=== PATIENT | female | born 1940 | race Caucasian/White ===

== ENCOUNTER 2018-02-12 06:03 | Emergency (ER) | payer MEDICARE ==
[~2018-02-12] VITALS: Ht 165.1 cm; Wt 58.1 kg
[~2018-02-12 06:03] MED LIST: ALPRAZOLAM0.5 MG PO; ASA81 MG PO; CALCIUM 500+D1 EACH PO; CLINDAMYCIN HC300 MG PO; CRANBERRY500 MG PO; DOCUSATE SODIU100 MG PO; FERROUS SULFAT325 MG PO; HCT25T PO; K-DUR10 ME1 PO; KCL10CCR PO; LOPRESSOR25 MG PO; LOVASTATIN40 MG PO; MAGNESIUM OXID400 MG PO; OMEPRAZOLE40 MG PO; ULTRAM 50MG50 MG PO; VIBRAMYCIN TAB100 MG PO; Z IMITREX PO; Z.0.HYDROCHLOROTHIA2 PO; Z.0.LIPITOR20 MG; Z.0.LOVASTATIN20 MG PO; Z.0.TOPROL XL50 MG PO; ZOFRAN ODT4 MG SL
[2018-02-12 06:52] LABS: BASOPHILS # (AUTO) 0.1 (0.0-0.1); BASOPHILS % 0.9 % (0.0-1.0); EOSINOPHILS # (AUTO) 0.2 (0.0-0.4); EOSINOPHILS % 3.5 % (0.0-6.0); HEMOGLOBIN 12.1 g/dL (12.0-16.0); LYMPHOCYTES # (AUTO) 2.2 (1.0-3.2); LYMPHOCYTES % 34.5 % (18.0-39.1); MEAN CORPUSCULAR HEMOGLOBIN 30.3 pg (28-32); MEAN CORPUSCULAR HGB CONC 33.6 g/dL (31-35); MEAN CORPUSCULAR VOLUME 90.2 fL (81-99); MONOCYTES # (AUTO) 0.6 (0.2-0.8); MONOCYTES % 8.7 % (4.4-11.3); NEUTROPHILS # (AUTO) 3.3 (2.1-6.9); NEUTROPHILS % 52.1 % (38.7-80.0); PLATELET COUNT 303 x10e3/uL (140-360); RED BLOOD COUNT 3.99 x10e6/uL (3.6-5.1); RED CELL DISTRIBUTION WIDTH 13.2 % (11.7-14.4)
[2018-02-12 06:56] LABS: INR 0.78; PROTHROMBIN TIME 11.6 seconds (11.9-14.5)
[2018-02-12 06:57] LABS: PARTIAL THROMBOPLASTIN TIME 34.6 seconds (23.8-35.5)
--- NOTE | 2018-02-12 07:02 | Diagnostic Imaging Report ---
EXAMINATION: CHEST 2 VIEWS INDICATION: Shortness of breath ^SOB ^[id number] ^[id number] COMPARISON: None FINDINGS: PA and lateral views TUBES and LINES: None. LUNGS: Lungs are well inflated. Lungs are clear. There is no evidence of pneumonia or pulmonary edema. PLEURA: No pleural effusion or pneumothorax. HEART AND MEDIASTINUM: The cardiomediastinal silhouette is unremarkable. BONES AND SOFT TISSUES: No acute osseous lesion. Sclerotic focus in the right humeral head, possibly bone infarct or enchondroma. Right axillary surgical clips. Right breast implant. UPPER ABDOMEN: No free air under the diaphragm. There are cholecystectomy clips. IMPRESSION: No acute thoracic abnormality. Sclerotic focus in the right humeral head, possibly bone infarct or enchondroma. Given presumed breast cancer, recommend correlation with prior imaging. Signed by: DR. Dorian Avery MD on 02/12/2018 6:59 AM
[2018-02-12 07:07] LABS: ALANINE AMINOTRANSFERASE 16 IU/L (0-55); ALBUMIN/GLOBULIN RATIO 1.2 (0.8-2.0); ALKALINE PHOSPHATASE 93 IU/L (40-150); ANION GAP 12.5 mmol/L (8-16); BLOOD UREA NITROGEN 16 mg/dL (7-26); BUN/CREATININE RATIO 20 (6-25); CALCIUM 9.6 mg/dL (8.4-10.2); CARBON DIOXIDE 26 mmol/L (22-29); CHLORIDE 106 mmol/L (98-107); CREATINE KINASE 58 IU/L (29-168); EST GLOMERULAR FILTRATION RATE > 60 ML/MIN (60-); GLUCOSE 115 mg/dL (74-118); MAGNESIUM 2.3 MG/DL (1.3-2.1); POTASSIUM 3.5 mmol/L (3.5-5.1); SODIUM 141 mmol/L (136-145)
[2018-02-12 07:17] LABS: CLARITY,URINE CLEAR (CLEAR); COLOR,URINE YELLOW (YELLOW)
[2018-02-12 07:18] LABS: BILIRUBIN,URINE NEGATIVE (NEGATIVE); KETONES,URINE NEGATIVE (NEGATIVE); LEUKOCYTE ESTERASE ,URINE NEGATIVE (NEGATIVE); NITRITE,URINE NEGATIVE (NEGATIVE); PROTEIN,URINE DIPSTICK NEGATIVE (NEGATIVE); URINE UROBILINOGEN 0.2 mg/dL (0.2 - 1)
[2018-02-12] MEDS ORDERED: ALBUTEROL/IPRATROPIUM 3 ML NEB NEB ONE (07:45)
[2018-02-12 10:01] VITALS: BP 160/88
== END 2018-02-12 10:05 | disposition home or self-care (01) ==
LOC: ER 06:03
DX: R06.00 Dyspnea, unspecified (principal); I10 Essential (primary) hypertension; Z85.3 Personal history of malignant neoplasm of breast; Z90.10 Acquired absence of unspecified breast and nipple; Z88.1 Allergy status to other antibiotic agents; Z88.8 Allergy status to other drugs, medicaments and biological substances
CPT/HCPCS: 36415; 71046; 80053; 81001; 82550; 82553; 83518; 83735; 83880; 84484; 85025; 85379; 85610; 85730; 87086; 93005; 94640; 99283

== ENCOUNTER 2018-02-14 18:29 | Emergency (ER) | payer MEDICARE ==
[~2018-02-14] VITALS: Ht 165.1 cm; Wt 70.8 kg
--- OUTSIDE RECORDS SUMMARY | 2018-02-14 18:32 | XMS REPORT ---
Author Author [facility] Address Unknown Phone Unavailable Care Team Providers Care Portable [employer] Operator Name Role Phone Michele AGUIRRE Unavailable Unavailable Problems This patient has no known problems. Allergies, Adverse Reactions, Alerts This patient has no known allergies or adverse reactions. Medications This patient has no known medications. Results Test Description Test Time Test Comments Text Results Atomic Results Result Comments CHEST 2 VIEWS 2018-02-12 06:56:00 [place] [id number] Patient Name: KEITH DAMICO MR #: [id number] : 1940 Age/Sex: 77/F Req #: [id number] Adm Physician: Ordered by: MIKIE AGUIRRE MD Report #: [id number] Location: ER Room/Bed: Procedure: [id number] DX/CHEST 2 VIEWS Exam Date: 02/12/18 Exam Time: 644 REPORT STATUS: Signed EXAMINATION: CHEST 2 VIEWS INDICATION: Shortness of breath SOB [id number] COMPARISON: None FINDINGS: PA and lateral views TUBES and LINES: None. LUNGS: Lungs are well inflated. Lungs are clear. There is no evidence of pneumonia or pulmonary edema. PLEURA: No pleural effusion or pneumothorax. HEART AND MEDIASTINUM: The cardiomediastinal silhouette is unremarkable. BONES AND SOFT TISSUES: No acute osseous lesion. Sclerotic focus in the right humeral head, possibly bone infarct or enchondroma. Right axillary surgical clips. Right breast implant. UPPER ABDOMEN: No free air under the diaphragm. There are cholecystectomy clips. IMPRESSION: No acute thoracic abnormality. Sclerotic focus in the right humeral head, possibly bone infarct or enchondroma. Given presumed breast cancer, recommend correlation with prior imaging. Signed by: DR. Dorian Teran MD on 02/12/2018 6:59 AM Dictated By: DORIAN TERAN MD 8 Transcribed By: SUSU on 02/12/18658 COPY TO: MIKIE AGUIRRE MD
--- NOTE | 2018-02-14 20:13 | Diagnostic Imaging Report ---
EXAMINATION: CHEST 2 VIEWS INDICATION: ^sob ^[id number] ^[id number] COMPARISON: 02/12/2018 FINDINGS: PA and lateral views TUBES and LINES: None. LUNGS: Lungs are well inflated. Lungs are clear. There is no evidence of pneumonia or pulmonary edema. PLEURA: No pleural effusion or pneumothorax. HEART AND MEDIASTINUM: The cardiomediastinal silhouette is unremarkable. BONES AND SOFT TISSUES: No acute osseous lesion. Right axillary fili dissection clips are again seen. Right breast implant. Unchanged sclerotic focus of the right humeral head. Degenerative changes of thoracic spine. UPPER ABDOMEN: No free air under the diaphragm. IMPRESSION: No acute thoracic abnormality. Signed by: Dr. Alexx Valle MD on 02/14/2018 8:10 PM
[2018-02-14 20:34] LABS: BASOPHILS # (AUTO) 0.1 (0.0-0.1); BASOPHILS % 0.8 % (0.0-1.0); EOSINOPHILS # (AUTO) 0.2 (0.0-0.4); EOSINOPHILS % 2.5 % (0.0-6.0); HEMATOCRIT 35.7 % (34.2-44.1); LYMPHOCYTES # (AUTO) 1.9 (1.0-3.2); LYMPHOCYTES % 29.5 % (18.0-39.1); MEAN CORPUSCULAR HEMOGLOBIN 29.6 pg (28-32); MEAN CORPUSCULAR HGB CONC 33.6 g/dL (31-35); MEAN CORPUSCULAR VOLUME 87.9 fL (81-99); MONOCYTES # (AUTO) 0.7 (0.2-0.8); MONOCYTES % 10.6 % (4.4-11.3); NEUTROPHILS # (AUTO) 3.7 (2.1-6.9); NEUTROPHILS % 56.3 % (38.7-80.0); PLATELET COUNT 305 x10e3/uL (140-360); RED BLOOD COUNT 4.06 x10e6/uL (3.6-5.1); RED CELL DISTRIBUTION WIDTH 13.4 % (11.7-14.4)
[2018-02-14 20:42] LABS: INR 0.87; PROTHROMBIN TIME 12.6 seconds (11.9-14.5)
[2018-02-14 20:49] LABS: PARTIAL THROMBOPLASTIN TIME 32.5 seconds (23.8-35.5)
[2018-02-14 20:52] LABS: ALANINE AMINOTRANSFERASE 17 IU/L (0-55); ALBUMIN 4.1 g/dL (3.5-5.0); ALBUMIN/GLOBULIN RATIO 1.3 (0.8-2.0); ALKALINE PHOSPHATASE 76 IU/L (40-150); BLOOD UREA NITROGEN 12 mg/dL (7-26); BUN/CREATININE RATIO 16 (6-25); CALCIUM 9.7 mg/dL (8.4-10.2); CARBON DIOXIDE 23 mmol/L (22-29); CHLORIDE 106 mmol/L (98-107); CREATINE KINASE 70 IU/L (29-168); CREATININE, SERUM 0.77 mg/dL (0.57-1.11); EST GLOMERULAR FILTRATION RATE > 60 ML/MIN (60-); GLUCOSE 103 mg/dL (74-118); SODIUM 140 mmol/L (136-145)
[2018-02-14] MEDS ORDERED: IOPAMIDOL 370 MG/ML 200 ML INFUS..BTL INJ ONE (22:20)
[2018-02-14] MEDS ORDERED: SODIUM CHLORIDE 0.9% 50ML 50 ML ONE (22:20)
--- NOTE | 2018-02-14 22:39 | Diagnostic Imaging Report ---
EXAM: CT CHEST W INDICATION: Shortness of breath COMPARISON: CT of the chest with IV contrast July 15, 2011 TECHNIQUE: Multidetector CT scanning of the chest was performed. Coronal and sagittal multiplanar reformations were obtained. Dose modulation, iterative reconstruction, and/or weight based adjustment of the mA/kV was utilized to reduce the radiation dose to as low as reasonably achievable. PE protocol performed. Coronal 3-D MIPS provided. IV Contrast: 62 cc Isovue-370 CTDIvol has been reviewed. It is below the limits set by the Radiation Protocol Committee (RPC). FINDINGS: LUNGS AND AIRWAYS: The trachea and major bronchi are unremarkable. No consolidations or edema. Mild central bronchial thickening bilaterally. PLEURA: No effusions or pneumothorax. HEART, MEDIASTINUM, VESSELS: The heart is at the upper limits of normal in size. No abnormal pericardial effusion. Mild atherosclerotic changes of the thoracic aorta without aneurysm. No mediastinal mass or lymphadenopathy. Mild nonspecific thickening of the esophagus. The main pulmonary artery is within normal size limits. No evidence of a pulmonary embolism. UPPER ABDOMEN: Cholecystectomy. Simple cyst measuring 5 mm left lobe of the liver. MUSCULOSKELETAL: Right breast implant. Surgical clips right axilla. Stable partially visualized sclerotic density in the right humeral head since 2011. IMPRESSION: 1. No evidence of a pulmonary embolism. 2. No evidence of pneumonia. Signed by: Dr. Cecelia Ayala M.D. on 02/14/2018 10:35 PM
[2018-02-14 23:21] VITALS: BP 151/73
== END 2018-02-14 23:28 | disposition home or self-care (01) ==
LOC: ER 18:29
DX: R06.09 Other forms of dyspnea (principal); I10 Essential (primary) hypertension; D64.9 Anemia, unspecified; K21.9 Gastro-esophageal reflux disease without esophagitis; E78.5 Hyperlipidemia, unspecified; Z85.3 Personal history of malignant neoplasm of breast
CPT/HCPCS: 36415; 71046; 71260; 80053; 82550; 82553; 83880; 84484; 85025; 85379; 85610; 85730; 93005; 99284; Q9967

== ENCOUNTER 2020-06-02 23:04 | Emergency (ER) | payer MEDICARE ==
[~2020-06-02] VITALS: Ht 165.1 cm; Wt 70.8 kg
[2020-06-03] MEDS ORDERED: DIPHENHYDRAMINE HCL 25 MG CAP PO ONE (00:30)
== END 2020-06-03 02:30 | disposition home or self-care (01) ==
LOC: ER 06-03 00:28
DX: L03.113 Cellulitis of right upper limb (principal); M79.89 Other specified soft tissue disorders; I10 Essential (primary) hypertension; E78.5 Hyperlipidemia, unspecified; K21.9 Gastro-esophageal reflux disease without esophagitis; D64.9 Anemia, unspecified; Z85.3 Personal history of malignant neoplasm of breast
CPT/HCPCS: 93971; 99283